=== PATIENT | female | born 1990 | race Caucasian/White ===

== ENCOUNTER → 2023-12-24 | Outpatient (CLI) | payer OTHER | LOC: M RAD 15:08 | PROVIDERS: ATTEND Nurse Practitioner Adult Health | DX: E04.1 Nontoxic single thyroid nodule (principal) ==

== ENCOUNTER 2024-02-17 21:40 | Emergency (ER) | payer OTHER ==
[~2024-02-17] VITALS: Ht 175.3 cm; Wt 75.5 kg
[2024-02-17 21:44] VITALS: BP 170/94; TEMP 97.7; O2SAT 100
[2024-02-17] MEDS ORDERED: AMOX875T2 PO (23:59)
[2024-02-18] MEDS: AUGMENTIN 875 MG TAB PO ONE (00:11)
== END 2024-02-18 01:26 | disposition home or self-care (01) ==
LOC: M ED 21:40
DX: S01.81XA Laceration without foreign body of other part of head, initial encounter (principal); W54.8XXA Other contact with dog, initial encounter; Y92.009 Unspecified place in unspecified non-institutional (private) residence as the place of occurrence of the external cause; Y93.89 Activity, other specified; Y99.9 Unspecified external cause status; Z79.2 Long term (current) use of antibiotics

== ENCOUNTER → 2024-07-07 | Outpatient (REF) | payer OTHER ==
[~2024-07-07] MED LIST: AMOX875T2 PO
[2024-07-09 14:44] LABS: HPV APTIMA Not Detected (Not Detected)
== END ==
LOC: M SFHCWAGY 15:23
PROVIDERS: ATTEND Advanced Practice Midwife
DX: Z12.4 Encounter for screening for malignant neoplasm of cervix (principal)
CPT/HCPCS: 87624; G0123

== ENCOUNTER → 2024-07-08 | Outpatient (CLI) | payer OTHER | LOC: M WHC 10:17 | PROVIDERS: ATTEND Advanced Practice Midwife | DX: N63.15 Unspecified lump in the right breast, overlapping quadrants (principal); Z53.9 Procedure and treatment not carried out, unspecified reason ==

== ENCOUNTER → 2024-07-20 | Outpatient (CLI) | payer OTHER | LOC: M WHC 07:58 | PROVIDERS: ATTEND Advanced Practice Midwife | DX: N63.15 Unspecified lump in the right breast, overlapping quadrants (principal) ==

== ENCOUNTER → 2024-10-04 | Outpatient (REF) | payer OTHER | LOC: M SFHCDERM 17:58 | PROVIDERS: ATTEND Nurse Practitioner Family | DX: D49.2 Neoplasm of unspecified behavior of bone, soft tissue, and skin (principal) ==

== ENCOUNTER → 2025-01-18 | Outpatient (REF) | payer OTHER | LOC: M PLALAB 09:41 | PROVIDERS: ATTEND Nurse Practitioner Family | DX: Z53.9 Procedure and treatment not carried out, unspecified reason (principal) ==

== ENCOUNTER → 2025-01-24 | Outpatient (CLI) | payer OTHER ==
[2025-01-24 13:59] LABS: PLATELET COUNT, AUTOMATED 300 10^3/uL (150-450)
[2025-01-24 14:27] LABS: LDH LACTATE DEHYDROGENASE 170 U/L (120-246)
[2025-01-24 14:28] LABS: ALT/SGPT 10 U/L (7.0-40); AST/SGOT 13 U/L (<34); CREATININE FOR GFR 0.67 MG/DL (0.55-1.30); GLOMERULAR FILTRATION RATE > 90.0 (>60)
[2025-01-24 14:37] LABS: TOTAL PROTEIN,RANDOM URINE < 6.0 MG/DL (0.0-14.0)
[2025-01-24 15:00] LABS: HIV 1&2 SCREEN NEGATIVE (NEGATIVE)
[2025-01-24 15:07] LABS: HEPATITIS C VIRUS ABY INDEX 0.06 INDEX (<0.8)
[2025-01-24 15:43] LABS: Trichomonas vaginalis (AMP) NOT DETECTED (NEGATIVE)
[2025-01-24 16:06] LABS: GC DNA AMPLIFICATION NEGATIVE (NEGATIVE)
== END ==
LOC: M PLALAB 09:42
PROVIDERS: ATTEND Nurse Practitioner Family
DX: Z34.80 Encounter for supervision of other normal pregnancy, unspecified trimester (principal)

== ENCOUNTER 2025-02-03 22:52 | Emergency (ER) | payer OTHER ==
[~2025-02-03] VITALS: Ht 175.3 cm; Wt 74.3 kg
[2025-02-03] MEDS ORDERED: MULTTAB20 PO (23:56)
[2025-02-03] MEDS ORDERED: ONDA-282 PO (23:56)
[2025-02-04 04:18] VITALS: BP 106/61; TEMP 98.6; O2SAT 99
== END 2025-02-04 04:21 | disposition home or self-care (01) ==
LOC: M ED 22:52
DX: O99.611 Diseases of the digestive system complicating pregnancy, first trimester (principal); K59.00 Constipation, unspecified; K64.4 Residual hemorrhoidal skin tags; Z79.899 Other long term (current) drug therapy